=== PATIENT | male | born 1960 | race Caucasian/White ===

== ENCOUNTER 2018-05-18 15:53 | Observation (INO) ==
[2018-05-18] MEDS ORDERED: KETOROLAC TROMETHAMINE 60 MG/2 ML VIAL IM ONE (16:30)
[2018-05-18] MEDS ORDERED: DIPHTH,PERTUSS(ACELL),TET VAC 0.5 ML VIAL IM ONE (16:32)
[2018-05-18] MEDS ORDERED: KETOROLAC TROMETHAMINE 30 MG/ML VIAL IV ONE (16:33)
--- NOTE | 2018-05-18 16:34 | ERNOTE ---
Integumentary HPI - General Time Seen by Provider: 05/18/18 16:26 Source: patient Exam Limitations: no limitations - Immun/Allergies/Home Medications Immunizations: IMMUNIZATION HX Immunizations Up to Date Yes Allergies/Adverse Reactions: Allergies Allergy/AdvReac Type Severity Reaction Status Date / Time Penicillins Allergy Unknown unknown Verified 05/18/18 15:58 Home Medications: HOME MEDICATIONS insulin detemir (U- 100) 100 unit/mL subcutaneous solution 18 unit SUB-Q BID 10/21/17 [Last Taken Unknown] hydrochlorothiazide 12.5 mg capsule 12.5 mg PO DAILY 10/24/17 [Last Taken Unknown] lisinopril 10 mg tablet 10 mg PO DAILY 10/24/17 [Last Taken Unknown] metformin 1,000 mg tablet 1,000 mg PO BID 10/24/17 [Last Taken Unknown] tamsulosin 0.4 mg capsule 0.4 mg PO DAILY 10/24/17 [Last Taken Unknown] - History of Present Illness Narrative: patient hit his right middle finger with a hammer about a week ago, notices a rash on his right hand which he thought was poison venkatesh. Over the last two days his right middle finger started to swell and be very tender, to the point where he is holding the hand under cold water to help with the pain, has not taken any pain meds yet, unsure about tetanus, states his diabetes is well controlled, smokes cigars Location: Reports: upper extremity Quality: Reports: painful Exposure: Reports: no cause identified Review of Systems - Review of Systems Constitutional: Absent: recent illness, fever, chills ENT: Absent: nose congestion, sore throat Respiratory: Absent: shortness of breath Cardiology: Absent: chest pain Gastrointestinal/Abdominal: Absent: nausea, vomiting, abdominal pain Genitourinary: Present: no symptoms reported Musculoskeletal: Present: See HPI. Absent: back pain Skin: Present: See HPI, rash Neurological: Absent: weakness, numbness Endocrine: Absent: increased urine Medical History (Last Reviewed 05/18/18 @ 16:49 by Kayley Chris MD) Carpal tunnel syndrome on both sides Onset Date: Unknown Cubital tunnel syndrome on left Onset Date: Unknown Diabetes mellitus type II, controlled Onset Date: Unknown Essential hypertension Onset Date: Unknown Inguinal hernia Onset Date: Unknown left Testicular disorder Onset Date: Unknown Surgical History: Surgical History (Last Reviewed 05/18/18 @ 16:49 by Kayley Chris MD) S/P carpal tunnel release Onset Date: ~11/29/17 Dr Monroy. Right endoscopic carpal tunnel release and ulnar nerve decompression at the cubital tunnel S/P cubital tunnel release Onset Date: 10/2017 left S/P cubital tunnel release Onset Date: ~11/29/17 Dr Monroy. Right endoscopic carpal tunnel release and ulnar nerve d ecompression at the cubital tunnel S/P endoscopic carpal tunnel release Onset Date: 10/2017 left H/O bone graft Onset Date: Unknown left wrist History of testicular surgery Onset Date: Unknown Family History: Family History (Last Reviewed 05/18/18 @ 18:38 by Alexander Cortez CRNA) Mother Suicide Father Heart disease Brother , half brother Heart disease Social History: Preferred Language Faroese Do you have any protestant or No cultural preference? Smoking Status Current every day smoker Alcohol Use heavy Drug Use none (Last Updated 12/12/17 @ 09:33 by WILBERTO Ramsay) No Social History Section defined Physical Exam - Physical Exam General Appearance: Present: wd/wn, alert, mild distress, anxious Respiratory: Present: no respiratory distress, normal breath sounds, no accessory muscle use, lungs clear Cardiovascular/Chest: Present: regular rate, rhythm Extremity Exam: Present: normal except - - right hand: deep abrasion on finger tip, couple vesicles over dorsum of middle finger, finger erythematous and swollen, tender with erythema extending to dorsum of hand, area of fluctuance over proximal phalanx Neurological Exam: Present: alert, oriented, normal mood/affect Skin Exam: Present: normal color, warm/dry Progress - Results and Orders Patient's Lab Results:: I have reviewed the patient's lab results. - Vital Signs Patient's Vital Signs:: I have reviewed the patient's vital signs. Vital Signs: Vital Signs 05/18/18 15:56 Temperature 36.8 C Pulse Rate 82 Respiratory Rate 16 Blood Pressure 134/84 O2 Sat by Pulse Oximetry 98 - X-Ray X-Ray #1 X-Ray: hand - no acute changes Interpretation: Interp. by me - Progress/Reassessment Chief Complaint: Cellulitis Progress Note-Subjective: 05/18/18 17:15 discussed with Christo Aviles via doc halo, Xray images and pictures of hand transmitted 05/18/18 17:20 patient states that pain is better after toradol 05/18/18 17:30 discussed with Christo Aviles, admit to medicine, hold off on antibiotics until I&D and cultures are done 05/18/18 17:40 discussed with silvia Delgadillo to admit and start IV fluids, give 10 units regular insulin IV patient has uncontrolled DM but is not in DKA as ketones are negative, CO2 and AG normal Departure Clinical Impression: Abscess of finger, right Uncontrolled diabetes mellitus Qualifiers: Diabetes mellitus type: other specified (including FILEMON) Glycemic state: with hyperglycemia Qualified Code(s): E13.65 - Other specified diabetes mellitus with hyperglycemia - Departure Disposition: Still a patient Condition: Stable
[2018-05-18 16:46] LABS: Hematocrit 47.5 % (42.0-52.0); Hemoglobin 16.7 gm/dL (13.5-18.0); Mean Cell Volume 86.7 fl (78-100); Mean Corpuscular Hemoglobin 30.5 pg (27-31); Mean Corpuscular Hgb Conc 35.2 g/dl (32-36); Neutrophil # 11.2 K/mm3 (1.3-6.0); Neutrophil % 78.8 % (42-75.0); Platelet Count 294 K/mm3 (150-450); Red Blood Count 5.48 M/mm3 (4.7-6.0); Red Cell Distribution Width 11.7 % (11.5-14.0); White Blood Count 14.2 K/mm3 (4.0-10.5)
[2018-05-18 17:02] LABS: Albumin * 3.5 gm/dl (3.4-5.0); Anion Gap 13.8 mmol/L (6.8-13.8); BUN/Creatinine Ratio 17.5 (9.0-21.6); Bilirubin, Total 0.7 mg/dL (0.0-1.1); CRP 4.6 mg/dL (0.0-0.9); Ca. Corrected For Albumin 9.2 mg/dL (8.4-10.2); Calcium * 9.1 mg/dL (7.9-10.9); Carbon Dioxide 28.7 mmol/L (24-32.6); Potassium 4.5 mmol/L (3.4-4.6); Total Protein 7.9 gm/dL (6.2-8.2)
[2018-05-18 17:12] LABS: Hemoglobin A1C 10.6 % (4.00-6.0)
[2018-05-18] MEDS ORDERED: NORMAL SALINE 1,000 ML IV ONE (17:36)
[2018-05-18] MEDS ORDERED: INSULIN REGULAR, HUMAN 100 UNITS/ML VIAL IV ONE (17:39)
--- NOTE | 2018-05-18 18:37 | CONS ---
- Reason for consultation (1) Abscess of finger, right Date of Service: 05/18/18 HPI - General Date of Service: 05/18/18 Narrative: Patient is a 57-year-old male who presented to the ER after significant increase in pain and swelling of his right middle phalanx. Patient notes approximately last week some time he smashed his finger he believes with either water hammer. He notes that he has had increasing pain and swelling over the past 4 days with a significant increase in the past 24 hours. He attempted to go to get that [facility] but stated the wait was too long so he went home and iced. He notes that 1-2 days ago he drained the tip of his middle phalanx and got a significant amount of pus out. He also put triple antibiotic at the time on this region. Patient notes that his blood sugars have been significantly uncontrolled lately. Patient states the pain is worse with movement better with rest, he has difficulty moving his hand due to swelling at this time. Source: patient - History of Present Illness Allergies/Adverse Reactions: Allergies Penicillins Allergy (Unknown, Verified 05/18/18 15:58) unknown Home Medications: Home Medications Medication Instructions Recorded Last Taken insulin detemir (U- 100) 100 18 unit SUB-Q BID 10/21/17 Unknown unit/mL subcutaneous solution hydrochlorothiazide 12.5 mg capsule 12.5 mg PO DAILY 10/24/17 Unknown lisinopril 10 mg tablet 10 mg PO DAILY 10/24/17 Unknown metformin 1,000 mg tablet 1,000 mg PO BID 10/24/17 Unknown tamsulosin 0.4 mg capsule 0.4 mg PO DAILY 10/24/17 Unknown Procedures Release Median Nerve, Percutaneous Endoscopic Approach (11/29/17) Release Ulnar Nerve, Open Approach (11/29/17) Medications - Medications Current Medications: Current Medications Sodium Chloride (Sodium Chloride 0.9%) 1,000 mls @ 250 mls/hr IV .Q4H ONE Stop: 05/18/18 21:35 Last Admin: 05/18/18 18:00 Dose: 250 mls/hr Documented by: Physical Examination - Exam Vital Signs: Vital Signs - Last Taken Temp 36.8 C 05/18/18 18:02 Pulse 86 05/18/18 18:02 Resp 16 05/18/18 18:02 BP 112/68 05/18/18 18:02 Pulse Ox 97 05/18/18 18:02 O2 Oxygen Delivery Method Room Air Constitutional: Present: Alert, Cooperative, No distress Respiratory: Present: no respiratory distress Extremity: Present: other - Right upper extremity--> diffuse erythema and edema about middle finger extending into the dorsal hand, capillary refill brisk, sensation intact to light touch, diffuse decreased range of motion at MCP, PIP and DIP joints due to edema. Small wound at the tip of index finger, significant maceration to distal phalanx due to previous bandage, fluctuant- appearing area over proximal phalanx Eye contact: Present: cooperative Thoughts: Present: normal thought pattern - Results and Findings: Lab/Microbiology results last 24 hrs: Abnormal/Pending Laboratory Last 24 HRS 05/18/18 05/18/18 05/18/18 16:39 16:39 16:39 WBC 14.2 H Immature Gran % (Auto) 0.80 H Immature Gran # (Auto) 0.11 H Neutrophils % 78.8 H Lymphocytes % 11.2 L Neutrophils # 11.2 H Monocytes # 1.2 H Sodium 122 L Chloride 84 L Random Glucose 679 H* Hemoglobin A1c 10.6 H Alkaline Phosphatase 185 H C-Reactive Prot, Quant 4.6 H - Assessments/Findings (1) Abscess of finger, right Problem: Acute Plan - Plan Plan: - 57 y/o male presenting to the ER for significant erythema and edema about his right hand. Concern for an abscess with significant cellulitis extending throughout his middle phalanx into the dorsal surface of his hand. Concern for fluctuant mass represented an abscess along the dorsal side of his proximal phalanx. Discussed with patient conservative or surgical intervention including incision and drainage with washout and treatment with IV antibiotics. Discuss risks versus benefits including but not limited to bleeding, numbness, surgical scar, cardiac and stroke risk, loss of range of motion or strength, wound complications. Patient wishes to proceed with surgical intervention. He will undergo incision and drainage with washout followed by admission for IV antibiotics. We'll hold antibiotics until postoperatively as to obtain culture of tissue and fluids. Patient agrees with this treatment plan and will be followed postoperatively. -Dr. Blecher from the medicine team will be the admitting provider and follow patient, is performing preoperative clearance.
--- NOTE | 2018-05-18 18:39 | ANES ---
Anesthesia Pre Procedure Eval Vitals/Labs: Last Vital Signs Temp 36.8 C 05/18/18 18:02 Pulse 86 05/18/18 18:02 Resp 16 05/18/18 18:02 BP 112/68 05/18/18 18:02 Pulse Ox 97 05/18/18 18:02 Hemoglobin A1c 10.6 % (4.00-6.0) H 05/18/18 16:39 HOME MEDICATIONS insulin detemir (U- 100) 100 unit/mL subcutaneous solution 18 unit SUB-Q BID 10/21/17 [Last Taken Unknown] hydrochlorothiazide 12.5 mg capsule 12.5 mg PO DAILY 10/24/17 [Last Taken Unknown] lisinopril 10 mg tablet 10 mg PO DAILY 10/24/17 [Last Taken Unknown] metformin 1,000 mg tablet 1,000 mg PO BID 10/24/17 [Last Taken Unknown] tamsulosin 0.4 mg capsule 0.4 mg PO DAILY 10/24/17 [Last Taken Unknown] Allergies/Adverse Reactions: Allergies Allergy/AdvReac Type Severity Reaction Status Date / Time Penicillins Allergy Unknown unknown Verified 05/18/18 15:58 - Planned Procedure Planned Procedure: swollen hand Medication List Reviewed:: Yes Allergies Verified: Yes Medical History (Last Reviewed 05/18/18 @ 18:38 by Alexander Cortez CRNA) Carpal tunnel syndrome on both sides Onset Date: Unknown Cubital tunnel syndrome on left Onset Date: Unknown Diabetes mellitus type II, controlled Onset Date: Unknown Essential hypertension Onset Date: Unknown Inguinal hernia Onset Date: Unknown left Testicular disorder Onset Date: Unknown Surgical History (Last Reviewed 05/18/18 @ 18:38 by Alexander Cortez CRNA) S/P carpal tunnel release Onset Date: ~11/29/17 Dr Monroy. Right endoscopic carpal tunnel release and ulnar nerve decompression at the cubital tunnel S/P cubital tunnel release Onset Date: 10/2017 left S/P cubital tunnel release Onset Date: ~11/29/17 Dr Monroy. 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) Mother Suicide Father Heart disease Brother , half brother Heart disease - Family Anesthesia History Family History:: no untoward family reactions to anesthesia - Airway/Neck/Teeth Denture Type: Full upper, Partial lower Neck Exam: full range of motion Mallampatti Score: 1 Thyromental (T-M) distance: > 6 cm Mandibulo Hyoid distance: > 3 cm - Respiratory Respiratory Physical: lungs clear Smoking Status: Current every day smoker Discussed smoking cessation including day of surgery: Yes Sleep Apnea currently treated: No Sleep Apnea by current assessment: No - Cardiovascular Cardiac History: hypertension Tolerate Activity: Fair Heart Sounds: S1 & S2, Regular - Anesthesia Assessment and Plan ASA Class: PS, III Anesthesia Type Plan: General LMA Planned difficult intubation/equipment available: No
--- NOTE | 2018-05-18 18:41 | HP ---
Chief Complaint - Chief Complaint Date of Service: 05/18/18 Time of Service: 18:21 Chief Complaint: hand infection History of Present Illness: Patient with past medical history of diabetes type 2 presents to the ER with a 3-day history of right hand pain and swelling. He reports smashing his distal right index finger working with wood 3 days ago, but also feels like he may have had an insect bite that could have caused this. He developed worsening swelling and erythema, to the point where his range of motion is limited in his right hand. He denies fevers, and nausea. He reports feeling fine otherwise, without signs of infection. Denies chest pain, shortness of breath, diarrhea, vomiting. Ortho has been consulted who will be performing an I&D later on this evening. He states usually his A1c is around 7. He gives himself 18 units of Levemir twice daily, and 1000 units of metformin twice daily. His A1c tonight is 10.6. Glucose is greater than 600. No serum ketones, elevated anion gap, or decreased CO2, so he is not in DKA. He lives in a house that was built in the 1870s, and he uses wood for heat. He reports having recent poison venkatesh, as he developed a rash 2 weeks ago from working with that wood. He usually wears gloves, and was putting calamine lotion on that rash. Medical History (Last Reviewed 05/18/18 @ 16:49 by Kayley Chris MD) Carpal tunnel syndrome on both sides Onset Date: Unknown Cubital tunnel syndrome on left Onset Date: Unknown Diabetes mellitus type II, controlled Onset Date: Unknown Essential hypertension Onset Date: Unknown Inguinal hernia Onset Date: Unknown left Testicular disorder Onset Date: Unknown Surgical History: Surgical History (Last Reviewed 05/18/18 @ 16:49 by Kayley Chris MD) S/P carpal tunnel release Onset Date: ~11/29/17 Dr Monroy. Right endoscopic carpal tunnel release and ulnar nerve decompression at the cubital tunnel S/P cubital tunnel release Onset Date: 10/2017 left S/P cubital tunnel release Onset Date: ~11/29/17 Dr Monroy. Right endoscopic carpal tunnel release and ulnar nerve decompression at the cubital tunnel S/P endoscopic carpal tunnel release Onset Date: 10/2017 left H/O bone graft Onset Date: Unknown left wrist History of testicular surgery Onset Date: Unknown Family History: Family History (Last Reviewed 05/18/18 @ 15:59 by Aaliyah Elizalde RN) Mother Suicide Father Heart disease Brother , half brother Heart disease Social History: Preferred Language Khmer Do you have any synagogue or No cultural preference? Smoking Status Current every day smoker Alcohol Use heavy Drug Use none (Last Updated 12/12/17 @ 09:33 by WILBERTO Ramsay) No Social History Section defined Review Of Systems (GEN) - Review of Systems Generalized/Overall Review: Absent: Fever Respiratory: Absent: Shortness of Breath Cardiac: Absent: Chest Pain Abdominal: Absent: Nausea, Vomiting, Abdominal Pain, Diarrhea Genitourinary: Absent: Dysuria Skin: Present: Change in Color - erythema, swelling, open wound Immunizations: IMMUNIZATION HX Immunizations Up to Date Yes Allergies/Adverse Reactions: Allergies Allergy/AdvReac Type Severity Reaction Status Date / Time Penicillins Allergy Unknown unknown Verified 05/18/18 15:58 Home Medications: HOME MEDICATIONS insulin detemir (U- 100) 100 unit/mL subcutaneous solution 18 unit SUB-Q BID 10/21/17 [Last Taken Unknown] hydrochlorothiazide 12.5 mg capsule 12.5 mg PO DAILY 10/24/17 [Last Taken Unknown] lisinopril 10 mg tablet 10 mg PO DAILY 10/24/17 [Last Taken Unknown] metformin 1,000 mg tablet 1,000 mg PO BID 10/24/17 [Last Taken Unknown] tamsulosin 0.4 mg capsule 0.4 mg PO DAILY 10/24/17 [Last Taken Unknown] Exam - Exam Vital Signs: Vital Signs - Last Taken Temp 36.8 C 05/18/18 18:02 Pulse 86 05/18/18 18:02 Resp 16 05/18/18 18:02 BP 112/68 05/18/18 18:02 Pulse Ox 97 05/18/18 18:02 Constitutional: Present: Alert, Oriented x3, Cooperative, No distress - thin Respiratory: Present: normal breath sounds, no respiratory distress Cardiovascular/Chest: Present: regular rate, rhythm Abdomen: Present: soft, nontender - scaphoid Extremity: Absent: lower extremity edema - right 2nd& 3rd digits erythematous and swollen extending to dorsum of hand. Distal skin sloughing. Small 2 mm open wound of 2nd distal phalynx Eye contact: Present: cooperative Diagnostic Studies: Abnormal Lab Results 05/18/18 05/18/18 05/18/18 Range/Units 16:39 16:39 16:39 WBC 14.2 H (4.0-10.5) K/mm3 Immature Gran % (Auto) 0.80 H (0.001-0.429) % Immature Gran # (Auto) 0.11 H (0.000-0.0310) K/mm3 Neutrophils % 78.8 H (42-75.0) % Lymphocytes % 11.2 L (20-51) % Neutrophils # 11.2 H (1.3-6.0) K/mm3 Monocytes # 1.2 H (0.0-1.0) k/mm3 Sodium 122 L (132-142) mmol/L Chloride 84 L (97-106) mmol/L Random Glucose 679 H* (70-110) mg/dL Hemoglobin A1c 10.6 H (4.00-6.0) % Alkaline Phosphatase 185 H (50-170) U/L C-Reactive Prot, Quant 4.6 H (0.0-0.9) mg/dL Laboratory Results WBC 14.2 K/mm3 (4.0-10.5) H 05/18/18 16:39 RBC 5.48 M/mm3 (4.7-6.0) 05/18/18 16:39 Hgb 16.7 gm/dL (13.5-18.0) 05/18/18 16:39 Hct 47.5 % (42.0-52.0) 05/18/18 16:39 MCV 86.7 fl (78-100) 05/18/18 16:39 MCH 30.5 pg (27-31) 05/18/18 16:39 MCHC 35.2 g/dl (32-36) 05/18/18 16:39 RDW 11.7 % (11.5-14.0) 05/18/18 16:39 Plt Count 294 K/mm3 (150-450) 05/18/18 16:39 MPV 11.0 fl (8-11.3) 05/18/18 16:39 Immature Gran % (Auto) 0.80 % (0.001-0.429) H 05/18/18 16:39 Immature Gran # (Auto) 0.11 K/mm3 (0.000-0.0310) H 05/18/18 16:39 Neutrophils % 78.8 % (42-75.0) H 05/18/18 16:39 Lymphocytes % 11.2 % (20-51) L 05/18/18 16:39 Monocytes % 8.3 % (0.0-9) 05/18/18 16:39 Eosinophils % 0.6 % (0.0-3.0) 05/18/18 16:39 Basophils % 0.3 % (0.0-1.0) 05/18/18 16:39 Nucleated RBC % 0.0 k/mm3 (0-1) 05/18/18 16:39 Neutrophils # 11.2 K/mm3 (1.3-6.0) H 05/18/18 16:39 Lymphocytes # 1.58 k/mm3 (1.5-3.5) 05/18/18 16:39 Monocytes # 1.2 k/mm3 (0.0-1.0) H 05/18/18 16:39 Eosinophils # 0.1 k/mm3 (0.0-0.7) 05/18/18 16:39 Absolute Basophils 0.0 k/mm3 (0.0-0.1) 05/18/18 16:39 Sodium 122 mmol/L (132-142) L 05/18/18 16:39 Plasma Sodium 131 mmol/L (130-142) 05/18/18 16:39 Potassium 4.5 mmol/L (3.4-4.6) 05/18/18 16:39 Chloride 84 mmol/L (97-106) L 05/18/18 16:39 Carbon Dioxide 28.7 mmol/L (24-32.6) 05/18/18 16:39 Anion Gap 13.8 mmol/L (6.8-13.8) 05/18/18 16:39 BUN 20 mg/dL (6-23) 05/18/18 16:39 Creatinine 1.14 mg/dL (0.4-1.4) 05/18/18 16:39 Est GFR (Non-Af Amer) 70 mL/min (60-130) 05/18/18 16:39 BUN/Creatinine Ratio 17.5 (9.0-21.6) 05/18/18 16:39 Random Glucose 679 mg/dL (70-110) H* 05/18/18 16:39 Mean Blood Glucose 267 mg/dL 05/18/18 16:39 Hemoglobin A1c 10.6 % (4.00-6.0) H 05/18/18 16:39 Calcium 9.1 mg/dL (7.9-10.9) 05/18/18 16:39 Calcium Adj for Albumin 9.2 mg/dL (8.4-10.2) 05/18/18 16:39 Total Bilirubin 0.7 mg/dL (0.0-1.1) 05/18/18 16:39 AST 29 U/L (0-48) 05/18/18 16:39 ALT 62 U/L (19-67) 05/18/18 16:39 Alkaline Phosphatase 185 U/L (50-170) H 05/18/18 16:39 C-Reactive Prot, Quant 4.6 mg/dL (0.0-0.9) H 05/18/18 16:39 Total Protein 7.9 gm/dL (6.2-8.2) 05/18/18 16:39 Albumin 3.5 gm/dl (3.4-5.0) 05/18/18 16:39 Serum Ketones Negative (NEGATIVE) 05/18/18 16:39 Assessment/Plan - Assessment/Plan (1) Abscess of finger, right Assessment: Ortho has been consulted for I&D tonight. Discussed with Christo, and they will be planning on doing wound and blood cultures. Will likely start vanc and possibly clindamycin or levaquin after his procedure. Since he was working with [employer], will cover for anaerobes. He does not have increased cardiovascular risk factors for surgery. No other signs of active infection currently. Problem: Acute (2) Uncontrolled diabetes mellitus Assessment: A1C of 10.6, indicating poor recent control. Admission blood sugar of 679. Will restart his home 18 units of Levemir or Lantus twice daily, and low-dose sliding scale insulin. He has been given fluids and 10 units IV regular insulin thus far. We will continue 250 cc/h of normal saline until after surgery or his sugars less than 300. Repeat BMP pending. Problem: Chronic Qualifiers: Diabetes mellitus type: other specified (including FILEMON) Glycemic state: with hyperglycemia Qualified Code(s): E13.65 - Other specified diabetes gillian litus with hyperglycemia
[2018-05-18 18:58] LABS: Anion Gap 13.1 mmol/L (6.8-13.8); BUN/Creatinine Ratio 17.4 (9.0-21.6); Calcium * 9.6 mg/dL (7.9-10.9); Estimated Creat Clear 66.3; Potassium 4.1 mmol/L (3.4-4.6)
[2018-05-18] MEDS ORDERED: RINGER'S SOLUTION,LACTATED 1,000 ML IV ONE (19:00)
[2018-05-18] MEDS ORDERED: VANCOMYCIN HCL 1 GM in DEXTROSE 5 % IN WATER 250 ML IV ONE ×2 (19:19)
[2018-05-18] MEDS ORDERED: ONDANSETRON HCL/PF 2 MG/ML VIAL IV PRN (19:57)
[2018-05-18] MEDS ORDERED: ACETAMINOPHEN 500 MG TABLET PO PRN (19:57)
[2018-05-18] MEDS ORDERED: HYDROcodone/ACETAMINOPHEN 1 EACH TABLET PO PRN (19:57)
[2018-05-18] MEDS ORDERED: MAGNESIUM HYDROXIDE 30 ML UDC PO PRN (19:57)
[2018-05-18] MEDS ORDERED: MORPHINE SULFATE 4 MG/ML SYRG IV PRN (19:57)
[2018-05-18] MEDS ORDERED: diphenhydrAMINE HCL 50 MG/ML VIAL IV PRN (19:57)
[2018-05-18] MEDS ORDERED: ZOLPIDEM TARTRATE 5 MG TABLET PO PRN (19:57)
[2018-05-18] MEDS ORDERED: MAG HYDROX/ALUMINUM HYD/SIMETH 30 ML UDC PO PRN (19:57)
--- NOTE | 2018-05-18 20:04 | OR ---
Operative Report - Dictated Report Narrative: Date: 05/18/2018 Physician: Cody Rodgers M.D. Diagnostic Assistant: Christo Aviles PA-C provided a set of essential, skilled, educated hands that assisted in positioning, transfer, retraction, manipulation, irrigation, closure of wounds, and placement of dressings all of which could not be provided by the available surgical crew. Preoperative diagnosis: Right dorsal hand and long finger abscess Postoperative diagnosis: Right dorsal hand and long finger abscess Procedure: Irrigation and debridement of right hand and long finger abscess including skin and subcutaneous tissue approximately 8 cm Anesthesia: General plus local Complications: None Estimated blood loss: Minimal Tourniquet time: 23 Minutes at 250 mmHg Specimens: None Retained implants: None Drains: 10 Montenegrin TLS Indications: Wade is a 57 year-old male uncontrolled diabetic who felt increasing swelling, redness, drainage from his right hand and long finger over the last several days. He presented to the [facility] emergency department where physical exam was consistent with a abscess over the dorsum of the long finger MCP extending down the finger. Orthopedics was consulted for further evaluation and management. Counseled the patient that we recommended surgical irrigation and debridement followed by at least 24 hours of IV antibiotics. On the risks of surgery including, but not limited to, persistent infection, nerve, extensor tendon, blood vessel injury, wound complications, need for additional procedures, and risks of anesthesia. Consent was obtained in the emergency department. Procedure: After marking the correct extremity in the preoperative holding area, a timeout was performed in the operating room. IV antibiotics were held prior to the procedure in anticipation of obtaining intraoperative cultures. A well-padded tourniquet was applied to the operative upper arm. The right upper extremity was then prepped and draped in the usual sterile fashion. The arm was exsanguinated and the tourniquet was inflated to 250 mmHg. 0.5% Marcaine with out epinephrine was used to perform a field block around the abscess. Using loupe magnification, a dorsal longitudinal incision was made over the proximal phalanx of the long finger approximately 2 cm in length. We immediately encountered a large amount of purulence. This was cultured with culture swab. Tenotomy scissors were used to break up all the loculations of the abscess which extended back into the dorsum of the hand slightly proximal to the MCP joint. Thorough mechanical debridement was performed. Additional tissue culture was sent. Following this, the patient was given 1 g of vancomycin. Next, the wound was copiously irrigated with 3 L normal saline. A 10 Montenegrin TLS drain was placed in the wound. The skin was closed with 4-0 nylon and sterile dressings consisting of Xeroform, 4 x 4, Miracle gauze, and Avery wrap was applied. All sponge, needle, blade, and instrument counts were correct prior to closing the wounds. The patient was awoken and transferred to the postanesthesia care unit in stable condition.
--- NOTE | 2018-05-18 20:07 | ANES ---
Post Anesthesia Discharge - Transfer of Care Transfer of Care handoff given to nurse: Yes - Discharge from PACU Discharge from PACU when meets criteria: Yes
--- NOTE | 2018-05-18 20:07 | ANES ---
Post Anesthesia Assessment - Vital Signs Vitals: Last Vital Signs Temp 36.7 C 05/18/18 19:55 Pulse 66 05/18/18 20:00 Resp 14 05/18/18 20:00 BP 104/68 05/18/18 20:00 Pulse Ox 98 05/18/18 20:00 Airway Patency: Normal - Mental Status Level Of Consciousness: Drowsy - Pain Level Pain Score: 0 - N/V Assessment Nausea/Vomiting Presence: None Dehydration:: No
[2018-05-18 20:57] LABS: Hematocrit 43.1 % (42.0-52.0); Hemoglobin 15.5 gm/dL (13.5-18.0); Mean Cell Volume 85.3 fl (78-100); Mean Corpuscular Hemoglobin 30.7 pg (27-31); Mean Platelet Volume 10.6 fl (8-11.3); Neutrophil # 13.5 K/mm3 (1.3-6.0); Neutrophil % 83.5 % (42-75.0); Platelet Count 260 K/mm3 (150-450); Red Blood Count 5.05 M/mm3 (4.7-6.0); Red Cell Distribution Width 11.7 % (11.5-14.0); White Blood Count 16.1 K/mm3 (4.0-10.5)
[2018-05-18] MEDS: INSULIN DETEMIR 100 UNITS/ML VIAL SC SCH (21:34)
[2018-05-18] MEDS: INSULIN LISPRO 100 UNITS/ML VIAL SC SCH (21:37)
[2018-05-18] MEDS: SENNOSIDES/DOCUSATE SODIUM 1 TAB TABLET PO SCH ×2 (21:38→21:44)
[2018-05-18] MEDS: LEVOFLOXACIN IN DEXTROSE 5 % 500 MG/100 ML BAG IV SCH (22:10)
[2018-05-18] MEDS: HYDROcodone/ACETAMINOPHEN 1 EACH TABLET PO PRN (22:11)
[2018-05-19] MEDS ORDERED: VANCOMYCIN HCL 1 GM in DEXTROSE 5 % IN WATER 250 ML IV SCH ×2 (06:00)
[2018-05-19 06:47] LABS: Anion Gap 11.1 mmol/L (6.8-13.8); BUN/Creatinine Ratio 27.8 (9.0-21.6); Calcium * 8.5 mg/dL (7.9-10.9); Carbon Dioxide 29.7 mmol/L (24-32.6); Estimated Creat Clear 93.5; Potassium 3.8 mmol/L (3.4-4.6)
[2018-05-19] MEDS: HYDROcodone/ACETAMINOPHEN 1 EACH TABLET PO PRN ×3 (06:50→21:02)
[2018-05-19] MEDS: INSULIN LISPRO 100 UNITS/ML VIAL SC SCH ×4 (06:54→20:33)
[2018-05-19] MEDS ORDERED: INSULIN LISPRO 100 UNITS/ML VIAL SC SCH (07:00)
[2018-05-19] MEDS: HYDROCHLOROTHIAZIDE 12.5 MG CAPSULE PO SCH (07:59)
[2018-05-19] MEDS: LISINOPRIL 10 MG TABLET PO SCH (08:00)
--- NOTE | 2018-05-19 08:08 | PN ---
Subjective - Date and Time Seen Date: 05/19/18 Time: 08:03 Subjective Narrative: Patient is sitting in bed comfortably. He states his hand feels significantly better than yesterday. He still has mild discomfort. He notes that he wishes to go home today so that he can eat and have a cigar. He notes no other acute complications postoperatively. Objective - Vitals Vitals: Last Vital Signs Temp 37.0 C 05/19/18 06:15 Pulse 74 05/19/18 08:00 Resp 16 05/19/18 07:57 BP 120/76 05/19/18 08:00 Pulse Ox 98 05/19/18 07:57 - Abnormal Lab Findings Abnormal Lab Findings: Abnormal Lab Results 05/18/18 05/18/18 05/18/18 Range/Units 16:39 16:39 16:39 WBC 14.2 H (4.0-10.5) K/mm3 Immature Gran % (Auto) 0.80 H (0.001-0.429) % Immature Gran # (Auto) 0.11 H (0.000-0.0310) K/mm3 Neutrophils % 78.8 H (42-75.0) % Lymphocytes % 11.2 L (20-51) % Neutrophils # 11.2 H (1.3-6.0) K/mm3 Lymphocytes # (1.5-3.5) k/mm3 Monocytes # 1.2 H (0.0-1.0) k/mm3 Sodium 122 L (132-142) mmol/L Chloride 84 L (97-106) mmol/L BUN (6-23) mg/dL BUN/Creatinine Ratio (9.0-21.6) Random Glucose 679 H* (70-110) mg/dL Hemoglobin A1c 10.6 H (4.00-6.0) % Alkaline Phosphatase 185 H (50-170) U/L C-Reactive Prot, Quant 4.6 H (0.0-0.9) mg/dL 05/18/18 05/18/18 05/19/18 Range/Units 18:35 20:55 06:30 WBC 16.1 H (4.0-10.5) K/mm3 Immature Gran % (Auto) (0.001-0.429) % Immature Gran # (Auto) 0.07 H (0.000-0.0310) K/mm3 Neutrophils % 83.5 H (42-75.0) % Lymphocytes % 8.2 L (20-51) % Neutrophils # 13.5 H (1.3-6.0) K/mm3 Lymphocytes # 1.33 L (1.5-3.5) k/mm3 Monocytes # 1.2 H (0.0-1.0) k/mm3 Sodium 128 L 129 L (132-142) mmol/L Chloride 89 L 92 L (97-106) mmol/L BUN 25 H (6-23) mg/dL BUN/Creatinine Ratio 27.8 H (9.0-21.6) Random Glucose 436 H D 221 H D (70-110) mg/dL Hemoglobin A1c (4.00-6.0) % Alkaline Phosphatase (50-170) U/L C-Reactive Prot, Quant (0.0-0.9) mg/dL - Exam Constitutional: Present: Alert, Cooperative, No distress Respiratory: Present: no respiratory distress Extremity: Present: other - RUE--> bandages clean dry and intact, drain has mild blood-tinged output and remains in place, sensation intact light touch, distal capillary refill brisk, mild erythema around MCP joints diffusely, small wound at the end of right middle finger, appears dry without drainage Assessment/Plan Plan Narrative: - 57 y/o male postop day 1 status post incision and drainage with washout of right hand abscess -Maintain drain until dressing change -Continue IV antibiotics of vancomycin and Levaquin -P.o. diet as tolerated -P.o. pain medication as needed -Chronic medical conditions per medicine -Discussed with patient continued IV antibiotics, consideration for discharge and use of the [facility] versus transition to orals, will discuss with medicine team later today after continued IV antibiotics -DVT prophylaxis: SCDs in bed, FREDIS hose knee-high - Problems/Diagnosis (1) Abscess of finger, right Problem: Acute
[2018-05-19] MEDS ORDERED: TAMSULOSIN HCL 0.4 MG CAP.SR.24H PO SCH (09:00)
[2018-05-19] MEDS ORDERED: NORMAL SALINE 1,000 ML IV ONE (10:23)
--- NOTE | 2018-05-19 10:31 | PN ---
Subjective - Date and Time Seen Date: 05/19/18 Time: 10:07 Subjective Narrative: Patient reports having a difficult night, unable to get rest. He does not notice any change yet in his pain or ROM, but he does feel like his pain is currently controlled. He is tolerating a diet. He asked if he could leave and then come back because he'd like to smoke. Declined nicotine patch. He did have an episode overnight when his glucose was down to 55, improved with ice cre am and juice. Objective - Review of Systems Generalized/Overall Review: Denies: Fever Cardiac: Denies: Edema Abdominal: Denies: Nausea Genitourinary Symptoms: Reports: No Symptoms Reported Skin: Reports: Other - abscess, swelling, erythema - Vitals Vitals: Last Vital Signs Temp 37.0 C 05/19/18 06:15 Pulse 74 05/19/18 08:00 Resp 16 05/19/18 07:57 BP 120/76 05/19/18 08:00 Pulse Ox 98 05/19/18 07:57 - Abnormal Lab Findings Abnormal Lab Findings: Abnormal Lab Results 05/18/18 05/18/18 05/18/18 Range/Units 16:39 16:39 16:39 WBC 14.2 H (4.0-10.5) K/mm3 Immature Gran % (Auto) 0.80 H (0.001-0.429) % Immature Gran # (Auto) 0.11 H (0.000-0.0310) K/mm3 Neutrophils % 78.8 H (42-75.0) % Lymphocytes % 11.2 L (20-51) % Neutrophils # 11.2 H (1.3-6.0) K/mm3 Lymphocytes # (1.5-3.5) k/mm3 Monocytes # 1.2 H (0.0-1.0) k/mm3 Sodium 122 L (132-142) mmol/L Chloride 84 L (97-106) mmol/L BUN (6-23) mg/dL BUN/Creatinine Ratio (9.0-21.6) Random Glucose 679 H* (70-110) mg/dL Hemoglobin A1c 10.6 H (4.00-6.0) % Alkaline Phosphatase 185 H (50-170) U/L C-Reactive Prot, Quant 4.6 H (0.0-0.9) mg/dL 05/18/18 05/18/18 05/19/18 Range/Units 18:35 20:55 06:30 WBC 16.1 H (4.0-10.5) K/mm3 Immature Gran % (Auto) (0.001-0.429) % Immature Gran # (Auto) 0.07 H (0.000-0.0310) K/mm3 Neutrophils % 83.5 H (42-75.0) % Lymphocytes % 8.2 L (20-51) % Neutrophils # 13.5 H (1.3-6.0) K/mm3 Lymphocytes # 1.33 L (1.5-3.5) k/mm3 Monocytes # 1.2 H (0.0-1.0) k/mm3 Sodium 128 L 129 L (132-142) mmol/L Chloride 89 L 92 L (97-106) mmol/L BUN 25 H (6-23) mg/dL BUN/Creatinine Ratio 27.8 H (9.0-21.6) Random Glucose 436 H D 221 H D (70-110) mg/dL Hemoglobin A1c (4.00-6.0) % Alkaline Phosphatase (50-170) U/L C-Reactive Prot, Quant (0.0-0.9) mg/dL - Exam Constitutional: Present: Alert, Oriented x3, Cooperative, No distress Respiratory: Present: normal breath sounds Cardiovascular/Chest: Present: regular rate, rhythm Abdomen: Present: soft, nontender - scaphoid Extremity: Absent: lower extremity edema Eye contact: Present: cooperative Assessment/Plan - Problems/Diagnosis (1) Abscess of finger, right Problem: Acute Narrative: POD #1 I&D of abscess by ortho in the OR. He has a drain in place with serous drainage. He was started on vancomycin and levaquin. Cultures pending, and will adjust antibiotics accordingly. Anticipate these will result tomorrow, and will keep him here again tonight. He smashed it while working with wood to heat his house. (2) Uncontrolled diabetes mellitus Problem: Chronic Qualifiers: Diabetes mellitus type: other specified (including FILEMON) Glycemic state: with hyperglycemia Qualified Code(s): E13.65 - Other specified diabetes mellitus with hyperglycemia Narrative: He reports taking 18 U levemir bid. HIs home dose was started last night, but glucose decreased to 55 overnight. This morning's dose held, and will give low dose SSI. Will need glucose less than 200 for proper healing. Admission glucose level of greater than 600, but he was not in DKA. A1C of 10.6, indicating poor glucose control at baseline. He reports not feeling well if his glucose is less than 200, but he will need his glucose to be less than 200 for optimum wound healing. This was discussed with him. (3) Hyponatremia Problem: Acute Narrative: Likely pseudohyponatremia with his elevated glucose. His level of 129 corrects to 132. However, give the severity of his infection and blood glucose of greater than 600 yesterday, will give one L NS today.
[2018-05-19] MEDS ORDERED: MORPHINE SULFATE 2 MG/ML DISP.SYRIN IV PRN (10:45)
[2018-05-19] MEDS: TAMSULOSIN HCL 0.4 MG CAP.SR.24H PO SCH (17:23)
[2018-05-19] MEDS: VANCOMYCIN HCL 1 GM in DEXTROSE 5 % IN WATER 250 ML IV SCH ×2 (17:23)
[2018-05-19] MEDS: SENNOSIDES/DOCUSATE SODIUM 1 TAB TABLET PO SCH (20:22)
[2018-05-19] MEDS: LEVOFLOXACIN IN DEXTROSE 5 % 500 MG/100 ML BAG IV SCH (20:23)
[2018-05-19] MEDS: INSULIN DETEMIR 100 UNITS/ML VIAL SC SCH (20:57)
[2018-05-20] MEDS: HYDROcodone/ACETAMINOPHEN 1 EACH TABLET PO PRN ×2 (03:37→16:42)
[2018-05-20] MEDS: VANCOMYCIN HCL 1 GM in DEXTROSE 5 % IN WATER 250 ML IV SCH ×2 (05:31)
[2018-05-20 05:36] LABS: Hematocrit 40.9 % (42.0-52.0); Hemoglobin 14.2 gm/dL (13.5-18.0); Mean Cell Volume 87.4 fl (78-100); Mean Corpuscular Hemoglobin 30.3 pg (27-31); Mean Corpuscular Hgb Conc 34.7 g/dl (32-36); Mean Platelet Volume 10.1 fl (8-11.3); Neutrophil # 4.4 K/mm3 (1.3-6.0); Platelet Count 263 K/mm3 (150-450); Red Blood Count 4.68 M/mm3 (4.7-6.0); Red Cell Distribution Width 11.8 % (11.5-14.0); White Blood Count 7.1 K/mm3 (4.0-10.5)
[2018-05-20] MEDS: INSULIN LISPRO 100 UNITS/ML VIAL SC SCH ×3 (07:30→16:37)
[2018-05-20] MEDS: INSULIN DETEMIR 100 UNITS/ML VIAL SC SCH (08:28)
[2018-05-20] MEDS: HYDROCHLOROTHIAZIDE 12.5 MG CAPSULE PO SCH (08:29)
[2018-05-20] MEDS: LISINOPRIL 10 MG TABLET PO SCH (08:29)
[2018-05-20] MEDS: TAMSULOSIN HCL 0.4 MG CAP.SR.24H PO SCH (17:28)
[2018-05-20] MEDS ORDERED: VANCOMYCIN HCL LEVEL XX ONE (17:30)
[2018-05-20] MEDS ORDERED: VANCOMYCIN HCL 1.75 GM in DEXTROSE 5 % IN WATER 500 ML IV SCH ×2 (17:30)
--- NOTE | 2018-05-20 18:42 | PN ---
Subjective - Date and Time Seen Date: 05/20/18 Time: 05:30 Subjective Narrative: Patient reports no acute events. He states his pain is well controlled. He has no other acute symptoms. He notes his hand moves better and overall feels better. Objective - Vitals Vitals: Last Vital Signs Temp 36.6 C 05/20/18 15:07 Pulse 97 05/20/18 15:07 Resp 16 05/20/18 15:07 BP 98/57 05/20/18 15:07 Pulse Ox 97 05/20/18 15:07 - Abnormal Lab Findings Abnormal Lab Findings: Abnormal Lab Results 05/20/18 05/20/18 Range/Units 05:30 16:35 RBC 4.68 L (4.7-6.0) M/mm3 Hct 40.9 L (42.0-52.0) % Immature Gran % (Auto) 0.70 H (0.001-0.429) % Immature Gran # (Auto) 0.05 H (0.000-0.0310) K/mm3 Monocytes % 9.5 H (0.0-9) % Vancomycin Trough 7.2 L (10.0-20.0) mcg/mL - Exam Constitutional: Present: Alert, Cooperative, No distress Extremity: Present: other - RUE>SILT, distal capillary refill brisk, moderate erythema around middle digit MCP dorsally, multiple sutures in place, mild skin maceration around sutures, drain in place with minimal output Eye contact: Present: cooperative Thoughts: Present: normal thought pattern Assessment/Plan Plan Narrative: - 57 y/o male post-op day 2 s/p incision and drainage with washout of right hand abscess - bandages changed, drain removed without complication, dressing reapplied - p.o. diet as tolerated -p.o. pain medication PRN -f/u at orthopedic outpatient clinic on 05/23/18 -discharge home with plan to receive IV antibiotics on 05/21/18 in the AM, once sensitivity and resistance is determined from cultures will determine if continued IV or transition to PO antibiotics is warranted -maintain dressing in place until f/u outpatient, keep clean and dry -wanda with any acute changes in symptoms or worsening - Problems/Diagnosis (1) Abscess of finger, right Problem: Acute
--- NOTE | 2018-05-20 19:43 | DS ---
(1) Abscess of finger, right Problem: Acute (2) Hyponatremia Problem: Acute (3) Uncontrolled diabetes mellitus Problem: Chronic Qualifiers: Diabetes mellitus type: other specified (including FILEMON) Glycemic state: with hyperglycemia Qualified Code(s): E13.65 - Other specified diabetes mellitus with hyperglycemia Description of Stay: Wade is a 57 yo male who was admitted for right hand abscess. Orthopedics were consulted and he was taken to the OR on 05/18/18 for wash out of abscess. Cultures were obtained and a drain was placed. He was treated with Levaquin and Vancomycin and adjusted by pharmacy. He is improving. Cultures continue to be pending but he is medically stable for discharge. He will be discharged after his evenings dose of vancomycin. He will return to the [facility] in the AM for vancomycin and ortho will evaluate cultures to see if he can be changed to orals. He will follow up with orthopedics on Saturday. His drain was removed prior to discharge by orthopedics without complication. His bandage was changed and he will be sent ld on pain medication. He will maintain dressing in place until follow-up appointment and keep dressing clean and dry. Procedures Performed: see notes below List Procedures: Intraoperative Incision and Drainage with washout by Orthopedics 05/18/18 Results and Findings: Pending Mircobiology Results 05/18/18 20:00 Hand - Right Abscess Culture - Preliminary Staphylococcus Species 05/18/18 21:45 Blood Blood Culture - Preliminary NO GROWTH 24 HOURS 05/18/18 20:55 Blood Blood Culture - Preliminary NO GROWTH 24 HOURS Lab Pending Results 05/18/18 16:39: WBC 14.2 H, RBC 5.48, Hgb 16.7, Hct 47.5, MCV 86.7, MCH 30.5, MCHC 35.2, RDW 11.7, Plt Count 294, MPV 11.0, Immature Gran % (Auto) 0.80 H, Immature Gran # (Auto) 0.11 H, Neutrophils % 78.8 H, Lymphocytes % 11.2 L, Monocytes % 8.3, Eosinophils % 0.6, Basophils % 0.3, Nucleated RBC % 0.0, Neutrophils # 11.2 H, Lymphocytes # 1.58, Monocytes # 1.2 H, Eosinophils # 0.1, Absolute Basophils 0.0 05/18/18 16:39: Sodium 122 L, Plasma Sodium 131, Potassium 4.5, Chloride 84 L, Carbon Dioxide 28.7, Anion Gap 13.8, BUN 20, Creatinine 1.14, Est GFR (Non-Af Amer) 70, BUN/Creatinine Ratio 17.5, Random Glucose 679 H*, Calcium 9.1, Calcium Adj for Albumin 9.2, Total Bilirubin 0.7, AST 29, ALT 62, Alkaline Phosphatase 185 H, C-Reactive Prot, Quant 4.6 H, Total Protein 7.9, Albumin 3.5 05/18/18 16:39: Mean Blood Glucose 267, Hemoglobin A1c 10.6 H 05/18/18 16:39: Serum Ketones Negative 05/18/18 18:35: Sodium 128 L, Plasma Sodium 133, Potassium 4.1, Chloride 89 L, Carbon Dioxide 30.0, Anion Gap 13.1, BUN 20, Creatinine 1.15, Est GFR (Non-Af Amer) 70, BUN/Creatinine Ratio 17.4, Random Glucose 436 H D, Calcium 9.6 05/18/18 20:55: Pathology Specimen Spec to path 05/18/18 20:55: WBC 16.1 H, RBC 5.05, Hgb 15.5, Hct 43.1, MCV 85.3, MCH 30.7, MCHC 36.0, RDW 11.7, Plt Count 260, MPV 10.6, Immature Gran % (Auto) 0.40, Immature Gran # (Auto) 0.07 H, Neutrophils % 83.5 H, Lymphocytes % 8.2 L, Monocytes % 7.6, Eosinophils % 0.1, Basophils % 0.2, Nucleated RBC % 0.0, Neutrophils # 13.5 H, Lymphocytes # 1.33 L, Monocytes # 1.2 H, Eosinophils # 0.0, Absolute Basophils 0.0 05/19/18 06:30: Sodium 129 L, Plasma Sodium 131, Potassium 3.8, Chloride 92 L, Carbon Dioxide 29.7, Anion Gap 11.1, BUN 25 H, Creatinine 0.90, Est GFR (Non-Af Amer) 92 D, BUN/Creatinine Ratio 27.8 H, Random Glucose 221 H D, Calcium 8.5 05/20/18 05:30: WBC 7.1 D, RBC 4.68 L, Hgb 14.2, Hct 40.9 L, MCV 87.4, MCH 30.3, MCHC 34.7, RDW 11.8, Plt Count 263, MPV 10.1, Immature Gran % (Auto) 0.70 H, Immature Gran # (Auto) 0.05 H, Neutrophils % 62.0, Lymphocytes % 24.4, Monocytes % 9.5 H, Eosinophils % 2.8, Basophils % 0.6, Nucleated RBC % 0.0, Neutrophils # 4.4, Lymphocytes # 1.72, Monocytes # 0.7, Eosinophils # 0.2, Absolute Basophils 0.0 05/20/18 16:35: Vancomycin Trough 7.2 L Discharge Location: Home Disposition: Home self-care Condition: Stable Discharge Activity: Activity as tolerated Discharge Diet: Consistent carbs Referrals: Anthony Payan MD [Primary Care Provider] - One Week Cody Rodgers MD [Staff Physician] - 05/23/18 Problem Oriented Discharge Instructions to Patient/Family: Abscess, [id number] Additional Patient Instructions (free text): Check in at the ED registration tomorrow for your dose of Vanco at 07:30. -f/u at orthopedic outpatient clinic on 05/23/18 -maintain dressing in place until f/u outpatient, keep clean and dry -call with any acute changes in symptoms or worsening Prescriptions (Any new or edited meds): HYDROcodone/ACETAMINOPHEN [Hom[place] 5-325] 2 each PO Q6H PRN #60 tablet PRN Reason: Severe Pain (Pain Scale 7-10) Levofloxacin [Levaquin] 500 mg PO DAILY #10 tab Vancomycin HCl [Vancomycin] 1.75 gm IV Q12H #1 vial Complete Home Medications List: Complete Home Medication List: insulin detemir (U- 100) 100 unit/mL subcutaneous solution 18 unit SUB-Q BID 10/21/17 hydrochlorothiazide 12.5 mg capsule 12.5 mg PO DAILY 10/24/17 lisinopril 10 mg tablet 10 mg PO DAILY 10/24/17 metformin 1,000 mg tablet 1,000 mg PO BID 10/24/17 tamsulosin 0.4 mg capsule 0.4 mg PO DAILY 10/24/17 Acetaminophen [Tylenol] 1,000 mg PO Q6H PRN tablet 05/20/18 HYDROcodone/ACETAMINOPHEN [Hominy 5-325] 2 each PO Q6H PRN #60 tablet 05/20/18 Levofloxacin [Levaquin] 500 mg PO DAILY #10 tab 05/20/18 Sennosides/Docusate Sodium [Senokot-S] 2 tab PO HS tablet 05/20/18 Vancomycin HCl [Vancomycin] 1.75 gm IV Q12H #1 vial 05/20/18
[2018-05-20 20:32] VITALS: BP 124/83
== END 2018-05-20 20:35 | disposition home or self-care (01) ==
LOC: ER 15:53 → AMB 18:25 → MS 18:25 → AMB 18:52
PROVIDERS: ADMIT Family Medicine; ATTEND Family Medicine
CPT/HCPCS: 36415; 73130; 80048; 80053; 80202; 82009; 83036; 85025; 86140; 87040; 87070; 87075; 87077; 87186; 87205; 88302; 88305; 88312; 90471; 90715; 96372; 96374; 99285; G0378